=== PATIENT | female | born 1970 | race Caucasian/White ===

== ENCOUNTER 2022-06-03 10:21 | Day surgery (SDC) | payer OTHER, SELFPAY ==
--- NOTE | 2022-06-02 12:52 | P.CONAN_ITS ---
Documented by User: Ivonne Padron NP 06/02/22 12:54 HPI - Anesthesia Eval Consult details Narrative: 51yo F for Left Plantar Fasciotomy Endoscopic PCP cleared [facility] Past Medical History Medical History Anxiety Chronic low back pain GERD (gastroesophageal reflux disease) Insomnia Leukopenia Obesity Restless leg syndrome Urinary incontinence Surgical History Surgical History History of 3 sections History of bladder suspension procedure History of breast mammoplasty History of foot surgery Hx of BSO (bilateral salpingo-oophorectomy) Status post panniculectomy Social History Social History Patient Tobacco Use Status: Never used Tobacco Are you DNR?: No Advance Directives: No Advance Directives Information Provided: Yes Recently lost weight without trying: No Nutrition Risks: No Nutritional Risk Patient : No Meds Allergies Allergy/AdvReac Type Severity Reaction Status Date / Time amoxicillin Allergy Nausea and Verified 05/28/22 13:12 Vomiting sumatriptan [From Imitrex] Allergy Difficulty Verified 05/28/22 13:12 Breathing Active Medications: Current Medications Vancomycin HCl 1,000 mg/ (Sodium Chloride) 270 mls @ 270 mls/hr IV PREOP ONE Stop: 06/02/22 09:38 Pharmacy Consult (Consult Rx Vancomycin Dosing) 1 each MISCELLANE DAILY PRN PRN Reason: Consult order Home Medications Medication Instructions Recorded Confirmed Last Taken Type amitriptyline 10 mg tablet 10 mg PO BEDTIME 05/28/22 05/28/22 06/02/22 History lorazepam 1 mg tablet 1 mg PO TID PRN Anxiety 05/28/22 05/28/22 06/02/22 History omeprazole 20 mg capsule,delayed 20 mg PO DAILY 05/28/22 05/28/22 06/02/22 History release pramipexole 0.25 mg tablet 0.25 mg PO BEDTIME 05/28/22 05/28/22 06/02/22 History Exam Exam Date and Time: June 02, 2022 125 Assessment and Plan Assessment Anesthesia Assessment: Chart Reviewed Documented by User: Sweetie Vaughan MD 06/03/22 11:19 [facility] Past Medical History Medical History Anxiety Chronic low back pain GERD (gastroesophageal reflux disease) Insomnia Leukopenia Obesity Restless leg syndrome Urinary incontinence Family History Family history of problems with anesthesia: No Surgical History Surgical History History of 3 sections History of bladder suspension procedure History of breast mammoplasty History of foot surgery Hx of BSO (bilateral salpingo-oophorectomy) Status post panniculectomy History of Problems with Anesthesia: No Social History Social History Patient Tobacco Use Status: Never used Tobacco Are you DNR?: No Advance Directives: No Advance Directives Information Provided: Yes Recently lost weight without trying: No Nutrition Risks: No Nutritional Risk Patient : No Meds Allergies Allergy/AdvReac Type Severity Reaction Status Date / Time amoxicillin Allergy Nausea and Verified 05/28/22 13:12 Vomiting sumatriptan [From Imitrex] Allergy Difficulty Verified 05/28/22 13:12 Breathing Home Medications Medication Instructions Recorded Confirmed Last Taken Type amitriptyline 10 mg tablet 10 mg PO BEDTIME 05/28/22 05/28/22 06/02/22 History lorazepam 1 mg tablet 1 mg PO TID PRN Anxiety 05/28/22 05/28/22 06/02/22 History omeprazole 20 mg capsule,delayed 20 mg PO DAILY 05/28/22 05/28/22 06/02/22 History release pramipexole 0.25 mg tablet 0.25 mg PO BEDTIME 05/28/22 05/28/22 06/02/22 History Exam Height,Weight and Vital Signs: Height 5 ft 2 in Weight 76.204 kg Vital Signs Temp Pulse Resp BP Pulse Ox O2 Del Method 06/03/22 10:17 98 F 89 18 151/97 H 97 Room Air Airway Mallampati Class: II TM Dist: >3cm Neck ROM: Full Loose/Missing/Broken Teeth: Yes (Missing 4 wisdom teeth. Denies broken or loose teeth but top front teeth ridged) Heart: RRR Lungs: CTAB Assessment and Plan Assessment Anesthesia Assessment: Anesthesia Plan Discussed Final Anesthetic Review Family History of Problems with Anesthesia: No History of Problems with Anesthesia: No NPO: Yes ASA Class: II Final Preanesthetic Review: No Changes in Pt Med Stat, Meds/Allgs Chart Reviewed, Consent Obtained/Reviewed and Anes Risks/Benef Reviewed Patient Risk: Low Procedure Risk: Low Assessment/Block/Sedation in SS: Assess/Block/Sedation-SS Anesthetic Plan Anesthetic Plan: GA Disposition: Standard PACU
--- NOTE | 2022-06-02 15:08 | HP_ITS ---
DATE OF SERVICE: 06/03/2022 PREOPERATIVE DIAGNOSIS: Plantar fasciitis, left foot. PLANNED PROCEDURE: Endoscopic plantar fasciotomy, left foot. PAST MEDICAL HISTORY: Anxiety, broken bones, chickenpox, COVID. CURRENT MEDICATIONS: Omeprazole, pramipexole. SURGICAL HISTORY: Partial hysterectomy, tummy tuck, breast lift, tendonitis of the elbow as well as a left [place] plantar fasciotomy on 12/02/2021. FAMILY HISTORY: Cancer. SOCIAL HISTORY: Patient is a nonsmoker. Denies any illicit drug use or alcohol use. 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 ALLERGIES: TO PENICILLIN AND CODEINE. HOSPITALIZATIONS: Denies. REVIEW OF SYSTEMS: Within normal limits. HISTORY OF PRESENT ILLNESS: The patient relates continued tenderness, sharp pain, and stiffness in the proximal plantar aspect of the left heel that have been present for some time. Patient has had multiple conservative as well as surgical interventions including rest change in shoes, inner soles, medications, stretching, physical therapy, as well as surgical intervention of [place] plantar fasciotomy in November of 2021. Patient relates little improvement after the [place] procedure and wants to proceed with the endoscopic plantar fasciotomy. PHYSICAL EXAMINATION: GENERAL: Reveals a pleasant, well-nourished, well-developed, well-hydrated individual, who demonstrates proper attention to body habitus, in no acute distress. She is oriented x3. NEUROLOGICAL: Reveals intact sensorium. Pain sensation is normal. Vibratory sensation is intact. Pinprick sensation is normal. She denies any anesthesias, burning, or paresthesias bilaterally. VASCULAR: DP and PT pulses are 3/4 bilaterally. Capillary refill is immediate to all digits. Skin temperature, elasticity, and turgor is normal. Pigmentation is normal. There is no edema. DERMATOLOGICAL: Reveals normal texture, elasticity, and turgor. There are no masses. The interspaces are clear. Heel pain inspection reveals on the left foot. Pain on palpation of the plantar fascia at the medial and central bands, intrinsic musculature, infracalcaneal bursa, and medial calcaneal tubercle. No pain to the posterior and superior heel, Achilles tendon or bursa, sinus tarsi, peroneals or with lateral heel compression. PLAN: Surgical procedures to treat the patient's foot problems were discussed in detail, reviewed the risks of the procedure versus not having this procedure. We also discussed the potential complications including, but not limited to pain, swelling, bleeding, scarring, numbness, infection, delayed or nonhealing, failure of the procedure, bilateral foot pain, decrease in arch height, recurrence, need for further surgery, as well as possibility of loss of toe, foot, life, or limb. Discussed the use of local and IV anesthesia and the usual postoperative course for healing. No guarantees were given. The patient verbally indicated a full understanding of the above-mentioned conversation. We decided on for performing a left endoscopic plantar fasciotomy based on the patient's complaints, medical and social history, physical exam, and x-ray analysis. Discussed that the endoscopic plantar fasciotomy may not resolve patient's pain completely. However, patient states she does want to try this procedure. She defers a second opinion or consult with Orthopedics. The patient would like to proceed with surgical treatment. She will obtain preoperative labs as well as medical clearance for surgery and anesthesia. She is made aware to stop any and all blood thinners including [id number] fish oil at least 1 week prior to surgery and driving may not be allowed during a portion of postoperative period. Patient will be partial weightbearing to the left foot with a surgical shoe and crutches as needed. She was given a prescription for pain medication including Percocet, which she can take for breakthrough pain and can use the lowest dosage for the shortest duration of time. She was also given a prescription of 800 mg of ibuprofen to take for pain and inflammation. Amy Elmore DPM LP/CAROL / [id number]
[2022-06-03 10:17] VITALS: BP 151/97; PULSE 89; RESP 18; TEMP 36.6; O2SAT 97; BMI 30.7
[2022-06-03] MEDS: Lactated Ringers 1,000 ML 100 ML IVCONT (10:42)
[2022-06-03] MEDS: vancomycin HCL 1,000 MG in 0.9 % Sodium Chloride 250 ML 270 MG IV (10:44)
--- NOTE | 2022-06-03 11:00 | MHC.SHP ---
Pre-Procedural Eval Section A Date of Service: 06/03/22 The patient is an INPATIENT: No Changes since office visit: No Cold of Flu in the past 2 weeks, No New Medical Problems, No Changes in Medication and No Patient answered all questions The History & Physical has been completed within 30 days and I have reviewed it.: Yes Section B Chief Complaint: Plantar fascial fibromatosis Allergies: Allergies Allergy/AdvReac Type Severity Reaction Status Date / Time amoxicillin Allergy Nausea and Verified 05/28/22 13:12 Vomiting sumatriptan [From Imitrex] Allergy Difficulty Verified 05/28/22 13:12 Breathing Plan I have reviewed the history and physical and performed a pertinent physical examination on my patient. No changes have occurred unless specified. Time Spent With Patient Time: Total time managing care of this patient today ____ minutes.
--- NOTE | 2022-06-03 12:02 | P.BOP_ITS ---
Brief Operative Note Date of Service: 06/03/22 Pre-op diagnosis: Plantar fasciitis left foot Post-op diagnosis: same Procedure: Left endoscopic plantar fasciotomy Implants: None Surgeon: Amy Elmore Anesthesia: GLMA and local Was an Chief School Finance Officer used for this Procedure?: No Estimated blood loss (mL): 1 Tourniquet time (min): 17 Pathology: none sent Condition: stable Disposition: PACU
[2022-06-03 12:09] VITALS: BP 123/84; PULSE 96; RESP 16; TEMP 36.6; O2SAT 93
[2022-06-03 12:14] VITALS: BP 121/79; PULSE 94; RESP 18; O2SAT 94
[2022-06-03 12:19] VITALS: BP 132/90; PULSE 92; RESP 18; O2SAT 95
[2022-06-03 12:24] VITALS: BP 134/88; PULSE 100; RESP 18; O2SAT 95
[2022-06-03 12:39] VITALS: BP 136/88; PULSE 88; RESP 16; TEMP 36.6; O2SAT 98
--- NOTE | 2022-06-04 18:16 | OP_ITS ---
DATE OF SERVICE: 06/03/2022 PREOPERATIVE DIAGNOSIS: Plantar fasciitis, left foot. POSTOPERATIVE DIAGNOSIS: Plantar fasciitis, left foot. PROCEDURE PERFORMED: Left foot endoscopic plantar fasciotomy. 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 ANESTHESIA: Monitored anesthetic care with local consisting preoperatively of 18 cc of 0.5% ropivacaine and 2% lidocaine plain and postoperatively of 5 cc of 0.5% bupivacaine plain and 1 cc of dexamethasone. COMPLICATIONS: None. ESTIMATED BLOOD LOSS: Less than 1 cc. HEMOSTASIS: Pneumatic ankle tourniquet set at 235 mmHg for 17 minutes. INDICATIONS FOR SURGERY: The patient had painful plantar fasciitis noted to the left foot. The patient has failed multiple conservative therapies as well as surgical treatment. Patient had previous [place] plantar fasciotomy surgery last year, but has failed to improve in her symptoms. The above-mentioned surgery was discussed in detail with the patient including risks, benefits, and possible complications. No guarantees were given. Written and oral informed consent was obtained. DESCRIPTION OF PROCEDURE: Patient was brought to the operating room, placed on the table in the supine position. Following IV sedation, the above-mentioned local anesthetic was injected about the left foot in a regional field block fashion and left foot was scrubbed, prepped, and draped in a sterile manner. The patient was given vancomycin as a prophylactic preoperative antibiotic. The left foot was exsanguinated and pneumatic ankle tourniquet was deflated. Attention was directed to the left heel at the medial plantar aspect approximately 5 cm from the distal heel and 1 cm from the plantar service. A vertical incision was made. The incision was bluntly dissected with hemostats and then using an elevator, the soft tissues were freed from the plantar fascia plantarly. A cannula was then inserted from the medial incision, plantar to the plantar fascia, extending to the lateral foot where a stab incision was made to allow the cannula to protrude through the lateral foot. The trocar of the cannula was removed. The cannula was cleaned with cotton-tipped applicators and the camera was introduced to the lateral aspect of the cannula and through the medial aspect of the cannula, a temporary guide blade was introduced to see where the cut would be made. The guide was removed and then the Hook blade was introduced to the medial aspect of the cannula and approximately the medial half of the central band and the entire medial band of plantar fascia was resected. The Hook blade was removed and the triangular blade was introduced into the same area to ensure that the plantar fascia was completely transected. During the cutting of the fascia, the foot was flexed dorsally to ensure that the fascia was cut. This was done under the camera scope and was visualized on the screen. The camera and the blade were removed. The incision was irrigated with normal sterile saline. The trocar was replaced into the cannula and all instrumentation was removed in total from the foot. The incisions were then sutured with 3-0 nylon in a continuous running fashion. The foot was then injected with 0.5% ropivacaine, 5 cc and 1 cc of dexamethasone. The foot was dressed with Xeroform, 4x4s, Betadine soaked gauze, ABD, fluffs, Kerlix, cast padding, and an Lincoln bandage. Pneumatic ankle tourniquet was deflated after 17 minutes and prompt capillary refill was noted to all 5 digits. The patient tolerated the procedure and anesthesia well. She was transferred to the recovery room with vital signs stable and vascular status at preoperative levels. Fast following period of postoperative recovery. The patient will be discharged home with written and oral postoperative instructions. The patient will be weightbearing as tolerated in a surgical shoe to the left foot and crutches as needed and she will follow up in my office for all postoperative followup care. Amy Elmore DPM LP/CAROL / [id number] MTDD
== END 2022-06-03 13:57 | disposition home or self-care (01) ==
PROVIDERS: PCP Internal Medicine; Visit Provider Podiatrist
PROC: (CPT 29893; principal; 2022-06-03 11:30)
DX: M72.2 Plantar fascial fibromatosis (principal); G25.81 Restless legs syndrome; D72.819 Decreased white blood cell count, unspecified; F41.1 Generalized anxiety disorder; Z79.899 Other long term (current) drug therapy; Z98.890 Other specified postprocedural states; Z86.16 Personal history of COVID-19; Z88.0 Allergy status to penicillin; Z88.8 Allergy status to other drugs, medicaments and biological substances
CPT/HCPCS: 29893; J1100; J2250; J2405; J2795; J3010; J3370